=== PATIENT | male | born 1950 | race Caucasian/White ===

== ENCOUNTER 2022-05-23 09:46 | Observation (INO) ==
[2022-05-23 10:38] LABS: ABS Lymphocytes 0.2 10^3/ul (1.0-4.8); ABS Monocytes 0.2 10^3/ul (0-0.8); ABS Neutrophils 4.6 10^3/ul (1.5-7.7); Eosinophil % 0.1 %; Hematocrit 35 % (42-52); Hemoglobin 11.9 g/dL (14.0-18.0); Lymphocyte % 3.5 %; Mean Corpuscular HGB Conc 34 g/dL (31-36); Mean Corpuscular Hemoglobin 27 pg (27-31); Mean Corpuscular Volume 80 fL (80-94); Mean Platelet Volume 7.4 fL (7.4-10.4); Platelet Count 209 10^3/uL (150-450); Red Blood Count 4.39 10^6 /uL (4.18-5.48); Red Cell Distribution Width 15 % (10-15)
[2022-05-23 10:47] LABS: Activated Partial Thrombo Time 33.4 seconds (26.0-38.0); INR 1.08 (0.89-1.11)
[2022-05-23 11:13] LABS: Albumin 4.4 g/dL (3.2-5.2); Albumin/Globulin Ratio 1.7 (1-3); C Reactive Protein 20.06 mg/L (<8.01); Calcium 9.2 mg/dL (8.6-10.3); Globulin 2.6 g/dL (2-4); Potassium 3.6 mmol/L (3.5-5.0); Total Bilirubin 0.5 mg/dL (0.2-1.0); eGFR CKD-EPI 62.8 (>60)
[2022-05-23 11:49] LABS: Urine Appearance Clear; Urine Blood 1+ (Small) (Negative); Urine Color Yellow; Urine Ketones 1+ (15mg/dL) (Negative); Urine Protein 1+ (30 mg/dL) (Negative); Urine Urobilinogen 0.2 (Negative) (Negative); Urine pH 6.5 (5.0-9.0)
[2022-05-23 11:50] LABS: Urine Bilirubin Negative (Negative); Urine Glucose Negative (Negative); Urine Nitrite Negative (Negative)
[2022-05-23 12:00] LABS: Urine Bacteria Absent (Absent); Urine Red Blood Cell 1+(3-5/hpf) (Absent); Urine White Blood Cell Trace(0-5/hpf) (Absent)
[2022-05-23 12:01] LABS: High Sensitivity Troponin 1 Hr 14 pg/mL (<20)
[2022-05-23] MEDS ORDERED: NS 0.9% 1000 ml BAG 1,000 ML IV SCH ×2 (15:30→22:40)
[2022-05-23] MEDS ORDERED: Remdesivir 100 mg Vial 200 MG in NS 0.9% 250 ml 210 ML IV ONE (15:35)
[2022-05-23] MEDS ORDERED: Dextrose 50% Syringe 50 ml 25 GM/50 ML SYRINGE IV PUSH PRN (16:05)
[2022-05-23] MEDS: Enoxaparin 40 MG/0.4 ML SYR SUBCUT SCH (16:35)
[2022-05-23 22:16] LABS: Calcium 8.6 mg/dL (8.6-10.3); Magnesium 1.4 mg/dL (1.9-2.7); Potassium 3.2 mmol/L (3.5-5.0)
[2022-05-23] MEDS ORDERED: Magnesium Sulfate IV 3 GM in NS 0.9% 100 ml BAG 100 ML IVPB ONE (22:39)
[2022-05-23] MEDS ORDERED: Potassium Chlor 20 meq TAB.ER PO ONE (22:45)
[2022-05-23] MEDS: NS 0.9% 1000 ml BAG 1,000 ML IV SCH (23:01)
[2022-05-23] MEDS ORDERED: Magnesium Sulfate 1 GM IV 1 GM/100 ML BAG IV ONE (23:45)
[2022-05-24] MEDS ORDERED: Magnesium Sulfate 2 GM IV (Premix) IVPB ONE (00:15)
[2022-05-24] MEDS: KCL 20 MEQ/100 ML IVPREMIX 20 MEQ/100 ML BAG IV SCH ×2 (01:33→03:00)
[2022-05-24 03:20] LABS: Urine Osmo 318 mOsm/kg (150-1150)
[2022-05-24 06:16] LABS: ABS Lymphocytes 0.7 10^3/ul (1.0-4.8); ABS Monocytes 0.3 10^3/ul (0-0.8); ABS Neutrophils 3.7 10^3/ul (1.5-7.7); Eosinophil % 0.3 %; Hematocrit 32 % (42-52); Hemoglobin 10.9 g/dL (14.0-18.0); Lymphocyte % 14.3 %; Mean Corpuscular HGB Conc 35 g/dL (31-36); Mean Corpuscular Hemoglobin 28 pg (27-31); Mean Corpuscular Volume 80 fL (80-94); Mean Platelet Volume 7.7 fL (7.4-10.4); Nucleated Red Blood Cells % 0.2; Platelet Count 183 10^3/uL (150-450); Red Blood Count 3.98 10^6 /uL (4.18-5.48); Red Cell Distribution Width 15 % (10-15); White Blood Count 4.8 10^3/uL (3.5-10.8)
[2022-05-24 06:30] LABS: Calcium 8.1 mg/dL (8.6-10.3); Potassium 4.5 mmol/L (3.5-5.0); eGFR CKD-EPI 83.5 (>60)
[2022-05-24 08:43] LABS: Creatinine, Serum 0.97 mg/dL (0.67-1.17)
[2022-05-24 08:59] LABS: Renal Sodium Excretion 0.35 %; Urine Creatinine Concentration 56.26 mg/dL
[2022-05-24] MEDS: NS 0.9% 1000 ml BAG 1,000 ML IV SCH (09:45)
[2022-05-24] MEDS ORDERED: Remdesivir 100 mg Vial 100 MG in NS 0.9% 250 ml 230 ML IV SCH ×2 (14:00→21:00)
[2022-05-24 15:26] LABS: Ferritin 91.6 ng/mL (24-336)
[2022-05-24] MEDS: Enoxaparin 40 MG/0.4 ML SYR SUBCUT SCH (16:59)
[2022-05-24] MEDS ORDERED: Remdesivir 100 mg Q24H MAINTENANCE DOSING IV SCH (21:00)
[2022-05-25 06:36] LABS: ABS Eosinophils 0.1 10^3/ul (0-0.6); ABS Lymphocytes 0.6 10^3/ul (1.0-4.8); ABS Monocytes 0.3 10^3/ul (0-0.8); ABS Neutrophils 3.8 10^3/ul (1.5-7.7); Eosinophil % 2.4 %; Hematocrit 34 % (42-52); Hemoglobin 11.5 g/dL (14.0-18.0); Lymphocyte % 12.2 %; Mean Corpuscular HGB Conc 34 g/dL (31-36); Mean Corpuscular Hemoglobin 28 pg (27-31); Mean Corpuscular Volume 81 fL (80-94); Mean Platelet Volume 7.5 fL (7.4-10.4); Nucleated Red Blood Cells % 0.1; Platelet Count 186 10^3/uL (150-450); Red Blood Count 4.12 10^6 /uL (4.18-5.48); Red Cell Distribution Width 15 % (10-15); White Blood Count 4.8 10^3/uL (3.5-10.8)
[2022-05-25 07:24] LABS: Calcium 8.4 mg/dL (8.6-10.3); Magnesium 1.7 mg/dL (1.9-2.7); Potassium 4.1 mmol/L (3.5-5.0); eGFR CKD-EPI 87.8 (>60)
[2022-05-25] MEDS ORDERED: Remdesivir 100 mg Vial 100 MG in NS 0.9% 250 ml 230 ML IV SCH (09:00)
[2022-05-25] MEDS ORDERED: Magnesium Sulfate IV 1GM/100ML 1 GM/100 ML BAG IV ONE (10:15)
[2022-05-25 11:14] VITALS: BP 123/60
== END 2022-05-25 15:00 | disposition home or self-care (01) ==
LOC: ED 09:46 → SUATTDRO 15:03 → EDHOLD 15:03 → INTOOBSV 15:03 → EDHOLD 21:14 → MED 21:30
PROVIDERS: ADMIT Internal Medicine; ATTEND Internal Medicine